=== PATIENT | female | born 1960 | race Caucasian/White ===

== ENCOUNTER 2020-10-24 19:22 | Emergency (ER) | payer OTHER ==
[2020-10-24 20:22] LABS: BASOPHIL 0.9 % (0-2); EOSINOPHIL 2.2 % (0-5); HCT 40.2 % (37.0-47.0); HGB 13.2 g/dl (12.5-16.0); LYMPHOCYTE 26.1 % (15-48); MCH 28.3 pg (25.0-31.0); MCHC 32.8 g/dL (32.0-36.0); MCV 86.3 fL (78.0-100.0); MONOCYTE 7.1 % (0-12); NEUTROPHIL 62.4 % (41-80); NRBC 0; PLT 262 K/uL (150-400); RBC 4.66 M/uL (4.20-5.40); RDW 14.9 % (11.5-14.0); WBC 6.9 K/uL (4.0-10.5)
[2020-10-24 20:26] LABS: PROTHROMBIN TIME 12.5 SECONDS (11.4-13.6)
[2020-10-24 20:27] LABS: PTT 25.3 SECONDS (22.2-34.7)
[2020-10-24 20:37] LABS: ALBUMIN 3.4 g/dL (3.4-5.0); BILIRUBIN - TOTAL 0.6 mg/dL (0.2-1.0); BUN/CREAT RATIO (CALC) 20.7 RATIO; CREATININE 0.82 mg/dL (0.51-0.95); POTASSIUM 3.5 mmol/L (3.5-5.1); TOTAL PROTEIN 7.4 g/dL (6.4-8.2)
== END 2020-10-24 23:40 | disposition home or self-care (01) ==
LOC: FER 19:22
PROVIDERS: Emergency Medicine
DX: R07.89 Other chest pain (principal); R05 Cough; I10 Essential (primary) hypertension; Z88.8 Allergy status to other drugs, medicaments and biological substances; Z79.899 Other long term (current) drug therapy
CPT/HCPCS: 36415; 71045; 80053; 84484; 85025; 85610; 85730; 93005